=== PATIENT | female | born 1955 | race American Indian/Alaskan Native ===

== ENCOUNTER 2020-05-21 10:30 | Outpatient (RCR) | payer MEDICARE, OTHER, SELFPAY ==
[2020-05-20 10:04] VITALS: BP 150/77; PULSE 70
--- NOTE | 2020-05-20 11:05 | MHC.PT.EP ---
[facility] [place] Office [place] Office [place] Office [address] Hector Herzog [address] [phone] F: [phone] F: [phone] F: [phone] F: [phone] Physical Therapy Plan of Care Date of Evaluation: 05/20/20 Date of Surgery: Diagnosis: Dizziness and Giddiness Assessment: 65 year old female referred for dizziness and giddiness . Pt reports of having sudden onset of dizziness about 2 months back. Pt woke up one morning with it. She has never has these symptoms in the past. Pt went to the ED as her symptoms lasted an hour. After keeping the pt in observation for 8 hours she was sent home with henrik. Due to persistent dizziness she was sent to PT. Examination reveals no pain, reports of room spinning dizziness with rolling in bed, supine <> sit and looking up, saccades, smooth pursuit, visual tracking and DVA- WNL, VBI negative, G SOP- WNL, DGI- and reports of room spinning dizziness in L abraham pike. R abraham pike and B roll test not tested due to increased nausea after CRM for L abraham pike. Pt lives with her son. She is independent with all ADLs but does them slowly and carefully. 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 She would benefit from PT with vestibular rehab Frequency and Duration: The patient will be seen 2/week for 4 weeks Short Term Goals: 1. Patient to be educated on symptoms and indications to return to therapy when needed in 4 weeks. 2. Pt will be negative for nystagmus or reports of vertigo in all diagnostic positions bilaterally to resolution of BPPV in 4 weeks. Detention Goals: Patient to be able to functionally move in all planes and directions without provocation of dizziness to show return to PLOF in 6 weeks. Treatment Plan: Modalities to reduce pain, spasms and effusion. Manual therapy to restore motion and function. Therapeutic exercise to improve strength and flexibility. Neuromuscular re-education for posture and balance. Therapeutic activities to return to functional activities of daily living. Please sign and return to therapist. Thank you for your referral.
--- NOTE | 2020-06-24 10:33 | MHC.PT.DC ---
[facility] [place] Office [place] Office [place] [employer] Office [address] Hector Herzog [address] [phone] F: [phone] F: [phone] F: [phone] F: [phone] Physical Therapy Discharge Report Diagnosis: Dizziness and Giddiness Date of Surgery: Date of Evaluation: 05/20/20 Date of Discharge: 06/24/20 Treatments to Date: 2 Cancellations to Date: 0 No Shows to Date: 0 Discharge Status: Achieved Goals Improved Function Discharge Summary: Pt presented with no symptoms of vertigo during her last treatment visit. She was re-assessed in L abraham pike and assessed in R abraham pike and B roll test. She was negative for nystagmus and vertigo. She has been asymptomatic for a month. Pt therefore d/c from therapy. Electronically signed by: Lyssa Ordaz DPT Please sign and return to therapist. Thank you for your referral.
== END 2020-06-24 10:37 | disposition other institution (70) ==
LOC: HO.PT 10:30
PROVIDERS: PCP Internal Medicine; Visit Provider Internal Medicine
DX: R42 Dizziness and giddiness (principal); F41.9 Anxiety disorder, unspecified
CPT/HCPCS: 95992; 97110; 97112; 97161

== ENCOUNTER 2020-07-01 10:04 | Outpatient (REF) | payer MEDICARE, OTHER, SELFPAY ==
--- NOTE | 2020-07-01 10:38 | XR_ITS ---
EXAMINATION: XR SHOULDER, LEFT CLINICAL INFORMATION: Shoulder pain. COMPARISON: None TECHNIQUE: AP external rotation, Grashey, scapular Y, and axillary views of the left shoulder. FINDINGS: Mild AC joint arthritis. No acute fracture or dislocation is seen. Glenohumeral joint space is maintained. No abnormal soft tissue calcification. XR/XR shoulder LT min 2V IMPRESSION: Mild AC joint arthritis.
[2020-07-01 11:28] LABS: MANUAL DIFF FLAG NO
[2020-07-01 11:39] LABS: Basophils Absolute Auto 0.1 X10*3/uL (0.0-0.2); Basophils Percent Auto 0.8 % (0-2); Eosinophils Absolute Auto 0.1 X10*3/uL (0.0-0.4); Eosinophils Percent Auto 1.6 % (0-4); Hematocrit 39.6 % (37-47); Imm Gran Abs Auto 0.04 X10*3/uL (0.00-0.03); Imm Gran Pct Auto 0.6 % (0.0-0.4); Lymphocytes Absolute Auto 1.9 X10*3/uL (1.2-4.9); Lymphocytes Percent Auto 26.3 % (20-40); Mean Corpuscular HGB Conc 30.3 g/dl (31.0-35.0); Mean Corpuscular Hemoglobin 22.3 pg (27.0-33.0); Mean Corpuscular Volume 73.6 fL (80-98); Mean Platelet Volume 12.1 fL (9.4-12.3); Monocytes Absolute Auto 0.7 X10*3/uL (0.1-1.2); Monocytes Percent Auto 9.9 % (2-11); Neutrophils Absolute Auto 4.3 X10*3/uL (2.0-8.3); Neutrophils Percent Auto 60.8 % (45-73); Platelet Count 235 X10*3/uL (160-400); Red Blood Count 5.38 X10*6/uL (4.20-5.50); Red Cell Distribution Width 14.3 % (11.0-16.0); White Blood Count 7.1 X10*3/uL (4.8-10.8)
[2020-07-01 11:55] LABS: Glucose Urine UA NEG (NEG); Leukocyte Esterase Urine NEG (NEG); Nitrite Urine NEG (NEG); PH 6.5 (5.0-8.0); Specific Gravity - Urine 1.025 (1.005-1.025); Urine Blood TRACE (NEG); Urine Ketones NEG (NEG); Urine Protein NEG (NEG-TRACE)
[2020-07-01 11:57] LABS: Appearance Urine CLEAR; Color Urine YELLOW
[2020-07-01 12:06] LABS: Mucus Urine 1+ /LPF; WBC Urine 0-2 /HPF (0-4)
[2020-07-01 12:13] LABS: Anion Gap 14 (12-20); Blood Urea Nitrogen 16 mg/dL (9-16); Calcium 8.9 mg/dL (8.4-10.2); Carbon Dioxide 26 mmol/L (22-29); Chloride 105 mmol/L (96-108); Cholesterol 251 mg/dL; Estimated Glomerular Filt Rate > 60; Glucose Fasting 110 mg/dL (60-99); HDL Cholesterol 54 mg/dL; LDL Cholesterol Calculated 173 mg/dl; Potassium 4.2 mmol/l (3.3-5.1); Sodium 141 mmol/L (135-145); Triglycerides 121 mg/dL
[2020-07-01 12:37] LABS: TSH reflex Free T4 1.89 mIU/mL (0.32-4.0)
[2020-07-01 14:22] LABS: Alanine Aminotransferase 14 U/L (0-31); Albumin Level 4.4 g/dL (3.5-5.0); Alkaline Phosphatase 75 U/L (39-117); Aspartate Amino Transferase 20 U/L (5-31); Bilirubin Total 0.4 mg/dL (0.0-1.0); Total Protein 7.3 g/dL (6.5-8.0)
== END 2020-07-01 10:05 | disposition home or self-care (01) ==
LOC: HO.LAB 10:04
PROVIDERS: Nurse Practitioner Family; Visit Provider Internal Medicine
DX: M25.512 Pain in left shoulder (principal)
CPT/HCPCS: 36415; 73030; 80048; 80053; 80061; 81001; 84443; 85025

== ENCOUNTER 2021-07-04 09:11 | Outpatient (REF) | payer MEDICARE, OTHER, SELFPAY ==
[2021-07-04 11:06] LABS: MANUAL DIFF FLAG NO
[2021-07-04 11:23] LABS: Basophils Absolute Auto 0.1 X10*3/uL (0.0-0.2); Basophils Percent Auto 0.7 % (0-2); Eosinophils Absolute Auto 0.1 X10*3/uL (0.0-0.4); Eosinophils Percent Auto 1.5 % (0-4); Hematocrit 40.3 % (37.0-47.0); Hemoglobin 12.1 g/dl (12.0-16.0); Imm Gran Abs Auto 0.04 X10*3/uL (0.00-0.03); Imm Gran Pct Auto 0.6 % (0.0-0.4); Lymphocytes Absolute Auto 2.2 X10*3/uL (1.2-4.9); Lymphocytes Percent Auto 30.5 % (20-40); Mean Corpuscular Hemoglobin 21.8 pg (27.0-33.0); Mean Corpuscular Volume 72.7 fL (80.0-98.0); Mean Platelet Volume 11.9 fL (9.4-12.3); Monocytes Absolute Auto 0.5 X10*3/uL (0.1-1.2); Monocytes Percent Auto 6.9 % (2-11); Neutrophils Absolute Auto 4.3 x10*3/uL (2.0-8.3); Neutrophils Percent Auto 59.8 % (45-73); Platelet Count 207 X10*3/uL (160-400); Red Blood Count 5.54 X10*6/uL (4.20-5.50); Red Cell Distribution Width 15.1 % (11.0-16.0); White Blood Count 7.1 X10*3/uL (4.8-10.8)
[2021-07-04 11:40] LABS: Alanine Aminotransferase 38 U/L (0-31); Albumin Level 4.4 g/dL (3.5-5.0); Alkaline Phosphatase 84 U/L (39-117); Anion Gap 12 (12-20); Aspartate Amino Transferase 28 U/L (5-31); Bilirubin Total 0.4 mg/dL (0.0-1.0); Blood Urea Nitrogen 16 mg/dL (9-16); Calcium 9.4 mg/dL (8.4-10.2); Carbon Dioxide 28 mmol/L (22-29); Chloride 104 mmol/L (96-108); Cholesterol 284 mg/dL; Estimated Glomerular Filt Rate > 60; Glucose Fasting 124 mg/dL (60-99); HDL Cholesterol 61 mg/dL; LDL Cholesterol Calculated 203 mg/dl; Potassium 4.1 mmol/L (3.3-5.1); Sodium 140 mmol/L (135-145); Total Protein 7.6 g/dL (6.5-8.0); Triglycerides 104 mg/dL
[2021-07-04 11:48] LABS: Thyroid Stimulating Hormone 25.54 uIU/mL (0.32-4.0); Vitamin D 25-OH Total 19.7 ng/mL (>30)
== END 2021-07-04 09:12 | disposition home or self-care (01) ==
LOC: HO.HMGCLDS 09:11
PROVIDERS: Visit Provider Internal Medicine
DX: E55.9 Vitamin D deficiency, unspecified (principal); E03.9 Hypothyroidism, unspecified; E78.00 Pure hypercholesterolemia, unspecified; I10 Essential (primary) hypertension
CPT/HCPCS: 36415; 80053; 80061; 82306; 84439; 84443; 85025

== ENCOUNTER 2022-08-11 09:22 | Outpatient (REF) | payer MEDICARE, OTHER, SELFPAY ==
[2022-08-11 11:16] LABS: Appearance Urine Clear; Color Urine Yellow; Glucose Urine UA Negative (Negative); Leukocyte Esterase Urine Negative (Negative); Nitrite Urine Negative (Negative); UMIC TRIGGER UACC YES; Urine Blood Trace (Negative); Urine Ketones Negative (Negative); Urine Protein Negative (Neg-Trace)
[2022-08-11 11:21] LABS: Bacteria Urine None Seen (None Seen); Hyaline Casts Urine 0-2 /LPF (0-2); RBC Urine 0-2 /HPF (0-2); Squamous Epithelial Cell Urine 0-2 /HPF (0-2); WBC Urine 0-5 /HPF (0-5)
[2022-08-11 11:23] LABS: MANUAL DIFF FLAG NO
[2022-08-11 11:29] LABS: Basophils Absolute Auto 0.1 X10*3/uL (0.0-0.2); Basophils Percent Auto 0.9 % (0-2); Eosinophils Absolute Auto 0.2 X10*3/uL (0.0-0.4); Eosinophils Percent Auto 2.9 % (0-4); Hematocrit 38.1 % (37.0-47.0); Hemoglobin 11.5 g/dl (12.0-16.0); Imm Gran Abs Auto 0.03 X10*3/uL (0.00-0.03); Imm Gran Pct Auto 0.4 % (0.0-0.4); Lymphocytes Absolute Auto 2.1 X10*3/uL (1.2-4.9); Mean Corpuscular HGB Conc 30.2 g/dl (31.0-35.0); Mean Corpuscular Hemoglobin 21.8 pg (27.0-33.0); Mean Corpuscular Volume 72.3 fL (80.0-98.0); Mean Platelet Volume 12.6 fL (9.4-12.3); Monocytes Absolute Auto 0.6 X10*3/uL (0.1-1.2); Monocytes Percent Auto 8.6 % (2-11); Neutrophils Absolute Auto 3.9 x10*3/uL (2.0-8.3); Neutrophils Percent Auto 57.2 % (45-73); Platelet Count 232 X10*3/uL (160-400); Red Blood Count 5.27 X10*6/uL (4.20-5.50); Red Cell Distribution Width 14.7 % (11.0-16.0); White Blood Count 6.8 X10*3/uL (4.8-10.8)
[2022-08-11 12:03] LABS: Alanine Aminotransferase 43 U/L (0-31); Albumin Level 4.2 g/dL (3.5-5.0); Alkaline Phosphatase 105 U/L (39-117); Anion Gap 12 (12-20); Aspartate Amino Transferase 43 U/L (5-31); Bilirubin Total 0.6 mg/dL (0.0-1.0); Blood Urea Nitrogen 12 mg/dL (9-16); Calcium 9.2 mg/dL (8.4-10.2); Carbon Dioxide 26 mmol/L (22-29); Chloride 108 mmol/L (96-108); Cholesterol 268 mg/dL; Estimated Glomerular Filt Rate > 60; Glucose Fasting 145 mg/dL (60-99); HDL Cholesterol 59 mg/dL; LDL Cholesterol Calculated 191 mg/dl; Potassium 3.9 mmol/L (3.3-5.1); Sodium 142 mmol/L (135-145); Triglycerides 90 mg/dL
[2022-08-11 12:23] LABS: Free T4 (Free Thyroxine) 0.99 ng/dL (0.71-1.85); Thyroid Stimulating Hormone 9.91 uIU/mL (0.32-4.0); Vitamin D 25-OH Total 14.1 ng/mL (>30)
== END 2022-08-11 09:23 | disposition home or self-care (01) ==
LOC: HO.HMGCLDS 09:22
PROVIDERS: PCP Internal Medicine; Visit Provider Internal Medicine
DX: E03.9 Hypothyroidism, unspecified (principal); I10 Essential (primary) hypertension; E55.9 Vitamin D deficiency, unspecified; E78.00 Pure hypercholesterolemia, unspecified
CPT/HCPCS: 36415; 80053; 80061; 81001; 82306; 84439; 84443; 85025

== ENCOUNTER 2023-04-18 07:43 | Outpatient (REF) | payer MEDICARE, OTHER, SELFPAY ==
[2023-04-18 11:28] LABS: Appearance Urine Cloudy; Color Urine Yellow; Glucose Urine UA Negative (Negative); Leukocyte Esterase Urine Negative (Negative); Nitrite Urine Negative (Negative); Urine Blood Negative (Negative); Urine Ketones Negative (Negative); Urine Protein Negative (Neg-Trace)
[2023-04-18 11:33] LABS: MANUAL DIFF FLAG NO
[2023-04-18 11:53] LABS: Basophils Absolute Auto 0.1 X10*3/uL (0.0-0.2); Basophils Percent Auto 0.8 % (0-2); Eosinophils Absolute Auto 0.2 X10*3/uL (0.0-0.4); Eosinophils Percent Auto 2.6 % (0-4); Hematocrit 38.6 % (37.0-47.0); Hemoglobin 11.5 g/dl (12.0-16.0); Imm Gran Abs Auto 0.02 X10*3/uL (0.00-0.03); Imm Gran Pct Auto 0.3 % (0.0-0.4); Lymphocytes Absolute Auto 1.9 X10*3/uL (1.2-4.9); Lymphocytes Percent Auto 31.4 % (20-40); Mean Corpuscular HGB Conc 29.8 g/dl (31.0-35.0); Mean Corpuscular Hemoglobin 21.6 pg (27.0-33.0); Mean Corpuscular Volume 72.6 fL (80.0-98.0); Mean Platelet Volume 11.4 fL (9.4-12.3); Monocytes Absolute Auto 0.5 X10*3/uL (0.1-1.2); Neutrophils Absolute Auto 3.5 x10*3/uL (2.0-8.3); Neutrophils Percent Auto 56.9 % (45-73); Platelet Count 266 X10*3/uL (160-400); Red Blood Count 5.32 X10*6/uL (4.20-5.50); Red Cell Distribution Width 15.5 % (11.0-16.0); White Blood Count 6.1 X10*3/uL (4.8-10.8)
[2023-04-18 12:43] LABS: Alanine Aminotransferase 15 U/L (0-31); Albumin Level 4.3 g/dL (3.5-5.0); Alkaline Phosphatase 64 U/L (39-117); Anion Gap 13 (12-20); Aspartate Amino Transferase 23 U/L (5-31); Bilirubin Total 0.5 mg/dL (0.0-1.0); Blood Urea Nitrogen 14 mg/dL (9-16); Calcium 9.4 mg/dL (8.4-10.2); Carbon Dioxide 26 mmol/L (22-29); Chloride 106 mmol/L (96-108); Cholesterol 221 mg/dL (<200); Estimated Glomerular Filt Rate > 60; Glucose Fasting 135 mg/dL (60-99); HDL Cholesterol 51 mg/dL (>40); Iron 82 mcg/dL (30-160); LDL Cholesterol Calculated 153 mg/dL (<100); Percent Iron Saturation 38 % (15-50); Potassium 3.7 mmol/L (3.3-5.1); Sodium 141 mmol/L (135-145); Total Iron Binding Capacity 213 mcg/dL (228-428); Total Protein 7.5 g/dL (6.5-8.0); Triglycerides 85 mg/dL (<150); Unsaturated Iron Binding 131 ug/dL; Vitamin D 25-OH Total 23.2 ng/mL (>30)
== END 2023-04-18 07:44 | disposition home or self-care (01) ==
LOC: HO.HMGCLDS 07:43
PROVIDERS: PCP Internal Medicine; Visit Provider Internal Medicine
DX: E78.00 Pure hypercholesterolemia, unspecified (principal); E55.9 Vitamin D deficiency, unspecified; E03.9 Hypothyroidism, unspecified; R30.0 Dysuria; D50.9 Iron deficiency anemia, unspecified; I10 Essential (primary) hypertension
CPT/HCPCS: 36415; 80053; 80061; 81003; 82306; 83540; 84439; 84443; 85025

== ENCOUNTER 2023-04-18 08:19 | Outpatient (AMB) | payer MEDICARE, OTHER, SELFPAY ==
--- NOTE | 2023-04-18 08:34 | A.OFFPC_ITS ---
Vital Signs 04/18/23 08:36 Height 5 ft 1 in Weight 111 lb 8 oz BMI 21.1 BP 118/82 Blood Pressure Location Lt brachial Position Sitting Pulse 65 Pulse Source Pulse Oximeter Pulse Oximetry (%) 98 Oxygen Delivery Method Room Air Intake Visit Reasons: hyperlipidemia, hypothyroidism, anemia Civil Service Clerk Required: No Accompanied by: Self / Same As Patient Allergies atorvastatin Adverse Reaction (Intermediate, Verified 04/18/23 09:32) weakness - feels shaky Rosuvastatin Adverse Reaction (Intermediate, Uncoded 04/18/23 09:32) leg weakness Medication List - Last Reconciled 04/18/23 by Jamison Gibson MD ascorbate calcium (vitamin C) 500 mg PO DAILY cholecalciferol (vitamin D3) 50 mcg PO DAILY 90 days ferrous sulfate 325 mg PO DAILY 30 days levothyroxine 112 mcg PO DAILY 90 days pravastatin 10 mg PO BEDTIME 30 days Tobacco use date assessed: 04/18/23 Fall risk assessment: No Falls in past year Last assessed Fall Risk: 04/18/23 Dental Screening Dental Screen Date: 04/18/23 Did you have a dental visit in the last 12 months?: No Did you have a dental problem in the last 6 months where you did not have access to dental care?: No Was dental information given to patient?: No HPI hyperlipidemia, hypothyroidism, anemia HPI Details Patient comes in today for her follow up visit States that she currently feels okay Is tolerating her Pravastatin 10 mg so far; was not able to tolerate Atorvastatin and Rosuvastatin in the past due to increasing myalgias while on the medications Thinks that her Levothyroxine 112 mcg daily may be too high for her as she has been experiencing some recurrent cramping pain in her fingers lately States that she just had her labs drawn earlier today at the lab draw station on [address] [place] - results are not yet available for review at this time She denies any headaches or dizziness Denies any chest pains, no SOB No nausea/vomiting, no abdominal pain No change in bowel habits noted Adds that her left shoulder has been bothering her (pain) on and off often lately States that she went to a local [facility] on [address] [place] a few weeks ago and had shoulder x-rays done - was told that her x-rays came out normal [facility] Medical History Vitamin D deficiency Acquired hypothyroidism Pure hypercholesterolemia Depression Iron deficiency anemia secondary to inadequate dietary iron intake Hyperlipidemia Anxiety Surgical History No pertinent past surgical history Family History Father No problems noted. Mother No problems noted. Social History Housing: House Alcohol intake: never Patient Tobacco Use Status: Never used Tobacco e-Cigarette/Vaping Use: Never Used Second Hand Smoke Exposure: No service: No Current occupational status: retired Cognitive needs: No Hearing needs: No Vision needs: Yes Questionnaire PHQ-9 Over the last 2 weeks, how often have you been bothered by any of the following problems? 1. Little interest or pleasure in doing things: not at all 2. Feeling down, depressed, or hopeless: not at all 3. Trouble falling or staying asleep, or sleeping too much: not at all 4. Feeling tired or having little energy: not at all 5. Poor appetite or overeating: not at all 6. Feeling bad about yourself - or that you are a failure or have let yourself or your family down: not at all 7. Trouble concentrating on things, such as reading the newspaper or watching television: not at all 8. Moving or speaking so slowly that other people could have noticed. Or the opposite - being so fidgety or restless that you have been moving around a lot more than usual: not at all 9. Thoughts that you would be better off or of hurting yourself in some way: not at all Total score: 0 Depression Screening Interpretation: Negative 55098 - PHQ-9 Billing: Yes Source: Developed by Drs. Pardeep Tidwell, Deb Pace, Victoriano Santoyo and colleagues, with an educational marleen from [employer]. Thrive Questionnaire Date Thrive assessed: 04/18/23 I am a: Patient What is your living situation today?: I have a steady place to live Within the past 12 months, did the food you bought not last and you didn't have the money to get more?: Never true Within the past 12 months, did you worry whether your food would run out before you got money to buy more?: Never true Do you have trouble paying for medicines?: No Do you have trouble getting transportation to medical appointments?: No Do you have trouble paying your heating and electricity bill?: No Do you have trouble taking care of your child, family member or friend?: No Do you have trouble with day-to-day activities such as bathing, preparing meals, shopping, managing finances, etc.?: No Are you currently unemployed and looking for a job?: No Are you interested in more education?: No Please select the resources that you would like help with: None Currently or been in a relationship where the following occur: no concerns reported AUDIT C Alcohol Use Questionnaire (AUDIT-C) 1. How often do you have a drink containing alcohol?: Never 3. How often do you have six or more drinks on one occasion?: Never Total Score: 0 Score Reviewed/Action Taken: Yes VANESA-7 AMB Questionnaire VANESA-7 Date VANESA - 7 assessed: 04/18/23 Feeling nervous, anxious, or on edge: 0 = Not at all Not being able to stop or control worryin = Not at all Worrying too much about different things: 0 = Not at all Trouble relaxin = Not at all Being so restless that it is hard to sit still: 0 = Not at all Becoming easily annoyed or irritable: 0 = Not at all Feeling afraid as if something awful might happen: 0 = Not at all Total VANESA-7 score (0-4 normal; 5-9 mild; 10-14 moderate; 15-21 severe): 0 Source: Developed by Drs. Pardeep Tidwell, Deb Pace, Victoriano Santoyo and colleagues, with an educational marleen from [employer]. Review of Systems Const Denies chills, Denies fatigue, Denies fever(s) and Denies headache(s) ENT Denies dysphagia, Denies dizziness, Denies otalgia, Denies headache(s), Denies neck pain, Denies odynophagia and Denies sore throat Card Denies chest pain, Denies palpitations and Denies dyspnea Resp Denies cough and Denies dyspnea GI Denies abdominal pain, Denies constipation, Denies dysphagia, Denies heartburn, Denies diarrhea, Denies nausea, Denies odynophagia and Denies vomiting Denies difficulty voiding, Denies nocturia and Denies dysuria Musc Reports arthralgias (left shoulder,on and off; recurrent cramping pain in fingers on both hands ) and Denies neck pain Skin/Breast Denies rash Neuro Denies dizziness and Denies headache(s) Endo Denies fatigue and Denies palpitations Physical exam (Primary Care) Vital Signs: Last Vital Signs Pulse 65 04/18/23 08:36 BP 118/82 04/18/23 08:36 Pulse Ox 98 04/18/23 08:36 Oxygen Delivery Method Room Air 04/18/23 08:36 BMI result Body Mass Index 21.1 Tobacco/Smoking Status: Tobacco use Status Tobacco use date assessed 04/18/23 04/18/23 08:38 Patient Tobacco Use Status Never used Tobacco 04/18/23 08:35 e-Cigarette/Vaping Use Never Used 04/18/23 08:35 PHQ-9: PHQ-9 Score PHQ-9: Total score 0 04/18/23 08:44 Depression Screening Interpretation: Negative Thrive Assessment: Date of Thrive Assessment Date Thrive assessed 04/18/23 04/18/23 08:38 Currently or been in a relationship where the following occur: no concerns reported Const General: no acute distress and alert HENMT Ears: TM's normal bilaterally and EAC's normal Throat: Yes posterior oropharynx normal and Yes tonsils normal (no TP congestion) Neck Neck: Yes no lymphadenopathy and Yes supple Resp Auscultation: clear to auscultation bilaterally, no rales and no wheezes Cardio Rate: regular rate Rhythm: regular rhythm Heart sounds: no murmurs GI Palpation (GI): Soft to palpation and nontender Auscultation: normal bowel sounds Skin Rashes: no rashes Extrem General: Yes no clubbing, cyanosis or edema Right upper extremity: Extremity exam: right hand Details: normal to inspection Left upper extremity: shoulder/upper arm Details: tenderness and normal ROM and hand Details: normal to inspection Office Procedures Flu Questionnaire Does the patient have a severe egg allergy?: No Immunizations flu vacc [id number] 6mos up(PF) 60 mcg(15 mcgx4)/0.5 mL IM syringe Performing Provider: Jamison Gibson MD Performing Location: [facility] Documented (not given) by: Nino Dennis on 04/18/23 08:44 Reason Not Given: Patient Refused Assessment and Plan Assessment & Plan (1) Pure hypercholesterolemia: Code(s): E78.00 - Pure hypercholesterolemia, unspecified Plan: Will follow up the results of her labs done earlier today Reinforced low cholesterol diet Continue Pravastatin 10 mg QD (was not able to tolerate Atorvastatin or Rosuvastatin in the past) Will recheck her labs and fasting lipids again in 4 months for follow up (2) Acquired hypothyroidism: Code(s): E03.9 - Hypothyroidism, unspecified Plan: Will follow up the results of her TFTs done earlier today Continue Levothyroxine 112 mcg QD for now - patient feels that her dose is too high as she has been experiencing recurrent cramping pain in her fingers lately Advised that her symptoms do not necessarily mean that they are due to her thyroid as there are a lot of other reasons that can contribute to her symptoms Advised that we will check back with her with further instructions once we have the results of her labs andwill let her know if her dose needs to be adjusted or not Will recheck her TFTs again in 4 months for follow up (3) Iron deficiency anemia secondary to inadequate dietary iron intake: Code(s): D50.8 - Other iron deficiency anemias Plan: She was still slightly anemic on her labs back in July 2022; will follow up the results of her CBC from earlier this morning Continue Ferrous Sulfate 325 mg QD Will recheck her CBC as well in 4 months for follow up (4) Vitamin D deficiency: Code(s): E55.9 - Vitamin D deficiency, unspecified Plan: Continue Vitamin D3 2000 units QD (5) Anxiety: Code(s): F41.9 - Anxiety disorder, unspecified Plan: Was on Escitalopram 20 mg QD in the past but she self-discontinued the medication a few months ago as she was feeling okay and did not think that she needed to continue on her Rx Was also seeing psychiatry previously but has not been back to see them in a while now (6) Depression: Code(s): F32.9 - Major depressive disorder, single episode, unspecified Qualifiers: Depression Type: major depressive disorder Major depression recurrence: recurrent Active/Remission status: currently active Major depression episode severity: unspecified Qualified Code(s): F33.9 - Major depressive disorder, recurrent, unspecified Plan: As above, was on Escitalopram 20 mg QD in the past but she self-discontinued the medication a few months ago as she did not feel that she needed to continue on her Rx Was seeing psychiatry previously but has not been back to see them in a while now (7) Shoulder pain, left: Code(s): M25.512 - Pain in left shoulder Qualifiers: Chronicity: chronic Qualified Code(s): M25.512 - Pain in left shoulder; G89.29 - Other chronic pain Plan: She is again experiencing recurrent left shoulder pain lately Relates that she went to a local [facility] a few weeks ago and had shoulder x- rays done, which reportedly came out normal Advised that her symptoms are most likely due to bursitis/tendinitis, especially since she is left-handed, and that this is most from overuse of her arm/joint Can take OTC Ibuprofen PRN but if her symptoms persist, may benefit from physical therapy Plan Follow up in 4 months Orders: Orders Complete Blood Count Auto Diff 4 Months D50.8 - Other iron deficiency anemias Thyroid Stimulating Hormone 4 Months E03.9 - Hypothyroidism, unspecified Influenza [id number] Immunization Today Z23 - Encounter for immunization Lipid Panel 4 Months E78.00 - Pure hypercholesterolemia, unspecified Comprehensive Supai. Panel Fast 4 Months E78.00 - Pure hypercholesterolemia, unspecified Free T4 (Free Thyroxine) 4 Months E03.9 - Hypothyroidism, unspecified Vitamin D 25-OH Total 4 Months E55.9 - Vitamin D deficiency, unspecified Coding Level of Care Code Est Pt Level 4 (09845) Diagnoses Pure hypercholesterolemia E78.00 Acquired hypothyroidism E03.9 Iron deficiency anemia secondary to inadequate dietary iron intake D50.8 Vitamin D deficiency E55.9 Anxiety F41.9 Episode of recurrent major depressive disorder, unspecified depression episode severity F33.9 Depression Type: major depressive disorder Major depression recurrence: recurrent Active/Remission status: currently active Major depression episode severity: unspecified Chronic left shoulder pain M25.512; G89.29 Chronicity: chronic
[2023-04-18 08:36] VITALS: BP 118/82; PULSE 65; O2SAT 98; BMI 21.1
== END 2023-04-18 09:32 | disposition home or self-care (01) ==
PROVIDERS: PCP Internal Medicine; Visit Provider Internal Medicine
DX: E78.00 Pure hypercholesterolemia, unspecified (principal); E03.9 Hypothyroidism, unspecified; F33.9 Major depressive disorder, recurrent, unspecified; D50.8 Other iron deficiency anemias; E55.9 Vitamin D deficiency, unspecified; F41.9 Anxiety disorder, unspecified; M25.512 Pain in left shoulder; G89.29 Other chronic pain
CPT/HCPCS: 99214

== ENCOUNTER 2023-09-06 15:18 | Outpatient (REF) | payer MEDICARE, OTHER, SELFPAY ==
[2023-09-06 16:21] LABS: Appearance Urine Clear; Color Urine Yellow; Glucose Urine UA Negative (Negative); Leukocyte Esterase Urine Trace (Negative); Nitrite Urine Negative (Negative); Specific Gravity - Urine 1.015 (1.005-1.025); UMIC TRIGGER UACC YES; Urine Blood Negative (Negative); Urine Ketones Negative (Negative); Urine Protein Negative (Neg-Trace)
[2023-09-06 16:25] LABS: Bacteria Urine None Seen (None Seen); Hyaline Casts Urine 0-2 /LPF (0-2); RBC Urine 0-2 /HPF (0-2); Squamous Epithelial Cell Urine 0-2 /HPF (0-2); WBC Urine 0-5 /HPF (0-5)
== END 2023-09-06 15:19 | disposition home or self-care (01) ==
LOC: HO.HMGCLDS 15:18
PROVIDERS: PCP Internal Medicine; Visit Provider Internal Medicine
DX: R39.9 Unspecified symptoms and signs involving the genitourinary system (principal)
CPT/HCPCS: 81001

== ENCOUNTER 2023-12-30 13:31 | Outpatient (AMB) | payer MEDICARE, OTHER, SELFPAY ==
[2023-12-30 13:54] VITALS: BP 124/68; PULSE 64; O2SAT 98; BMI 21.5
--- NOTE | 2023-12-30 13:54 | MHC.PC.OV ---
Vital Signs 12/30/23 13:54 Height 5 ft 1 in Weight 114 lb BMI 21.5 BP 124/68 Blood Pressure Location Lt brachial Position Sitting Pulse 64 Pulse Source Pulse Oximeter Pulse Oximetry (%) 98 Oxygen Delivery Method Room Air Intake Visit Reasons: nauseated, has a bump on top of belly button Allergies atorvastatin Adverse Reaction (Intermediate, Verified 12/30/23 14:06) weakness - feels shaky Rosuvastatin Adverse Reaction (Intermediate, Uncoded 12/30/23 14:06) leg weakness Medication List - Last Reconciled 12/30/23 by Jamison Gibson MD ascorbate calcium (vitamin C) 500 mg PO DAILY cholecalciferol (vitamin D3) 50 mcg PO DAILY 90 days ferrous sulfate 325 mg PO DAILY 30 days levothyroxine 112 mcg PO DAILY 90 days pravastatin 10 mg PO BEDTIME 30 days Tobacco use date assessed: 04/18/23 Dental Screening Dental Screen Date: 04/18/23 HPI nauseated, has a bump on top of belly button HPI Details Patient comes in today for her HDF follow up visit She went to the ER at [facility] a couple of weeks ago for increased dizziness, with some nausea, for about 3 days Work ups done at the hospital, including labs, head CT and CTA of the head and neck, all came out normal States that she was sent home with Rx for Meclizine, which she states helped but she is not taking that anymore at present as her dizziness has resolved She is worried though about her symptoms recurring and would like to know what she can do to prevent her symptoms from coming back States that she currently feels okay She denies any headaches Denies any chest pains, no SOB No nausea/vomiting, no abdominal pain No change in bowel habits noted She had follow up labs last done back in April 2023 - has not had any other follow up labs done since [facility] Medical History Vitamin D deficiency Acquired hypothyroidism Pure hypercholesterolemia Depression Iron deficiency anemia secondary to inadequate dietary iron intake Hyperlipidemia Anxiety Surgical History No pertinent past surgical history Family History Father No problems noted. Mother No problems noted. Social History Housing: House Alcohol intake: never Patient Tobacco Use Status: Never used Tobacco e-Cigarette/Vaping Use: Never Used Second Hand Smoke Exposure: No service: No Current occupational status: retired Cognitive needs: No Hearing needs: No Vision needs: Yes Questionnaire PHQ-9 Over the last 2 weeks, how often have you been bothered by any of the following problems? 1. Little interest or pleasure in doing things: not at all 2. Feeling down, depressed, or hopeless: not at all 3. Trouble falling or staying asleep, or sleeping too much: not at all 4. Feeling tired or having little energy: not at all 5. Poor appetite or overeating: not at all 6. Feeling bad about yourself - or that you are a failure or have let yourself or your family down: not at all 7. Trouble concentrating on things, such as reading the newspaper or watching television: not at all 8. Moving or speaking so slowly that other people could have noticed. Or the opposite - being so fidgety or restless that you have been moving around a lot more than usual: not at all 9. Thoughts that you would be better off or of hurting yourself in some way: not at all Total score: 0 Depression Screening Interpretation: Negative Depression Screening Done: Yes [id number] - PHQ-9 Billing: Yes Source: Developed by Drs. Pardeep Tidwell, Deb Pace, Victoriano Santoyo and colleagues, with an educational marleen from [employer] Thrive Questionnaire Date Thrive assessed: 12/30/23 I am a: Patient What is your living situation today?: I have a steady place to live Within the past 12 months, did the food you bought not last and you didn't have the money to get more?: Never true Within the past 12 months, did you worry whether your food would run out before you got money to buy more?: Never true Do you have trouble paying for medicines?: No Do you have trouble getting transportation to medical appointments?: No Do you have trouble paying your heating and electricity bill?: No Do you have trouble taking care of your child, family member or friend?: No Do you have trouble with day-to-day activities such as bathing, preparing meals, shopping, managing finances, etc.?: No Are you currently unemployed and looking for a job?: No Are you interested in more education?: No Please select the resources that you would like help with: None Currently or been in a relationship where the following occur: no concerns reported THRIVE Score: 0 AUDIT C Alcohol Use Questionnaire (AUDIT-C) 1. How often do you have a drink containing alcohol?: Never 3. How often do you have six or more drinks on one occasion?: Never Total Score: 0 Score Reviewed/Action Taken: Yes VANESA-7 AMB Questionnaire VANESA-7 Date VANESA - 7 assessed: 04/18/23 Source: Developed by Drs. Pardeep Tidwell, Deb Pace, Victoriano Santoyo and colleagues, with an educational marleen from [employer] Review of Systems Const Denies chills, Denies fatigue, Denies fever(s) and Denies headache(s) ENT Denies dysphagia, Denies dizziness (currently resolved), Denies otalgia, Denies headache(s), Denies neck pain, Denies odynophagia and Denies sore throat Card Denies chest pain, Denies palpitations and Denies dyspnea Resp Denies cough and Denies dyspnea GI Denies abdominal pain, Denies constipation, Denies dysphagia, Denies heartburn, Denies diarrhea, Denies nausea, Denies odynophagia and Denies vomiting Denies difficulty voiding, Denies nocturia, Denies dysuria and Denies urinary urgency Musc Reports arthralgias (left shoulder,on and off; recurrent cramping pain in fingers on both hands ) and Denies neck pain Skin/Breast Denies rash Neuro Denies dizziness (currently resolved) and Denies headache(s) Endo Denies fatigue and Denies palpitations Physical exam (Primary Care) Vital Signs: Last Vital Signs Pulse 64 12/30/23 13:54 BP 124/68 12/30/23 13:54 Pulse Ox 98 12/30/23 13:54 Oxygen Delivery Method Room Air 12/30/23 13:54 BMI result Body Mass Index 21.5 Tobacco/Smoking Status: Tobacco use Status Tobacco use date assessed 04/18/23 12/30/23 13:57 Patient Tobacco Use Status Never used Tobacco 12/30/23 13:57 e-Cigarette/Vaping Use Never Used 12/30/23 13:57 Depression Screening Interpretation: Negative Thrive Assessment: Date of Thrive Assessment Date Thrive assessed 04/18/23 12/30/23 13:57 Currently or been in a relationship where the following occur: no concerns reported Const General: no acute distress and alert HENMT Ears: TM's normal bilaterally and EAC's normal Throat: Yes posterior oropharynx normal and Yes tonsils normal (no TP congestion) Neck Neck: Yes no lymphadenopathy and Yes supple Thyroid: Thyroid normal Resp Auscultation: clear to auscultation bilaterally, no rales and no wheezes Cardio Rate: regular rate Rhythm: regular rhythm Heart sounds: no murmurs GI Palpation (GI): Soft to palpation and nontender Auscultation: normal bowel sounds Skin Rashes: no rashes Extrem General: Yes no clubbing, cyanosis or edema Results Reviewed Results Reviewed: Laboratory Tests 04/18/23 07:50 WBC 6.1 Hgb 11.5 L Hct 38.6 MCV 72.6 L MCH 21.6 L MCHC 29.8 L RDW 15.5 Plt Count 266 Creatinine 0.76 Estimated GFR > 60 Fasting Glucose 135 H AST 23 ALT 15 Triglycerides 85 Cholesterol 221 H LDL Cholesterol, Calc 153 H HDL Cholesterol 51 TSH 22.10 H Free T4 0.90 Assessment and Plan Assessment & Plan (1) Dizziness: Code(s): R42 - Dizziness and giddiness Plan: She is advised that her recent symptoms (dizziness) are likely due to paroxysmal vertigo, which is a benign condition although they symptoms can be quite bothersome Advised that avoiding any sudden or abrupt changes in position, avoiding any head trauma and staying hydrated and getting plenty of sleep and rest at night can help minimize or avoid symptom recurrence but ultimately, there is nothing else that can be done directly that can help her keep these from recurring (2) Pure hypercholesterolemia: Code(s): E78.00 - Pure hypercholesterolemia, unspecified Plan: She is advised that her cholesterol numbers last done in April 2023 were still elevated Reinforced low cholesterol diet Continue Pravastatin 10 mg QD for now but we may need to consider increasing her dose if her numbers do not improve on her current Rx (she was not able to tolerate Atorvastatin or Rosuvastatin in the past) Will recheck her labs and fasting lipids again in 4 months for follow up (3) Acquired hypothyroidism: Code(s): E03.9 - Hypothyroidism, unspecified Plan: She is also advised that her TSH remain significantly elevated although her free T4 level has been gradually normalizing Continue Levothyroxine 112 mcg QD for now - patient feels that her dose is too high as she has been experiencing recurrent cramping pain in her fingers often She does have a habit of adjusting her medication dose on her own based on how she is physically feeling Advised again that her cramping symptoms do not necessarily mean that they are due to her thyroid as there are a lot of other reasons that can contribute to her symptoms Will recheck her TFTs again in 4 months for follow up (4) Iron deficiency anemia secondary to inadequate dietary iron intake: Code(s): D50.8 - Other iron deficiency anemias Plan: She was still slightly anemic on her labs back in April 2023, and continues to present with microcytosis and hypochromia Continue Ferrous Sulfate 325 mg QD Will recheck her CBC as well in 4 months for follow up (5) Vitamin D deficiency: Code(s): E55.9 - Vitamin D deficiency, unspecified Plan: Continue Vitamin D3 2000 units QD (6) Anxiety: Code(s): F41.9 - Anxiety disorder, unspecified Plan: She was on Escitalopram 20 mg QD in the past but she self-discontinued the medication a few months ago as she was feeling okay and did not think that she needed to continue on her Rx She was also seeing psychiatry previously but has not been back to see them in a while now (7) Depression: Code(s): F32.9 - Major depressive disorder, single episode, unspecified Qualifiers: Depression Type: major depressive disorder Major depression recurrence: recurrent Active/Remission status: currently active Major depression episode severity: unspecified Qualified Code(s): F33.9 - Major depressive disorder, recurrent, unspecified Plan: As above, was on Escitalopram 20 mg QD in the past but she self-discontinued the medication a few months ago as she did not feel that she needed to continue on her Rx Was seeing psychiatry previously but has not been back to see them in a while now Plan Follow up in 4 months Orders: Orders Lipid Panel 4 Months E78.00 - Pure hypercholesterolemia, unspecified Thyroid Stimulating Hormone 4 Months E03.9 - Hypothyroidism, unspecified Free T4 (Free Thyroxine) 4 Months E03.9 - Hypothyroidism, unspecified Microalbumin, Random (w Creat) 4 Months E11.9 - Type 2 diabetes mellitus without complications Hemoglobin A1c 4 Months E11.9 - Type 2 diabetes mellitus without complications IRON PROFILE 4 Months D50.9 - Iron deficiency anemia, unspecified UA CC w/rflx Micro + Cult 4 Months R30.0 - Dysuria Complete Blood Count Auto Diff 4 Months D64.9 - Anemia, unspecified Comprehensive Qulin. Panel Fast 4 Months E78.00 - Pure hypercholesterolemia, unspecified Vitamin D 25-OH Total 4 Months E55.9 - Vitamin D deficiency, unspecified Coding Level of Care Code Est Pt Level 4 (44410) Complex EM visit Add On G2211 Diagnoses Dizziness R42 Pure hypercholesterolemia E78.00 Acquired hypothyroidism E03.9 Iron deficiency anemia secondary to inadequate dietary iron intake D50.8 Vitamin D deficiency E55.9 Anxiety F41.9 Episode of recurrent major depressive disorder, unspecified depression episode severity F33.9 Depression Type: major depressive disorder Major depression recurrence: recurrent Active/Remission status: currently active Major depression episode severity: unspecified
== END 2023-12-30 14:20 | disposition home or self-care (01) ==
PROVIDERS: PCP Internal Medicine; Visit Provider Internal Medicine
DX: R42 Dizziness and giddiness (principal); F33.9 Major depressive disorder, recurrent, unspecified; E78.00 Pure hypercholesterolemia, unspecified; E03.9 Hypothyroidism, unspecified; D50.8 Other iron deficiency anemias; E55.9 Vitamin D deficiency, unspecified; F41.9 Anxiety disorder, unspecified
CPT/HCPCS: 99214; G2211

== ENCOUNTER 2024-07-16 11:13 | Outpatient (REF) | payer MEDICARE, OTHER, SELFPAY ==
[2024-07-16 13:32] LABS: Appearance Urine Cloudy; Color Urine Yellow; Glucose Urine UA Negative (Negative); Leukocyte Esterase Urine Negative (Negative); Nitrite Urine Negative (Negative); PH 6.5 (5.0-9.0); UMIC TRIGGER UACC YES; Urine Blood Small (1+) (Negative); Urine Ketones Negative (Negative); Urine Protein Negative (Neg-Trace)
[2024-07-16 13:35] LABS: Bacteria Urine None Seen (None Seen); Hyaline Casts Urine 0-2 /LPF (0-2); RBC Urine >20 /HPF (0-2); Squamous Epithelial Cell Urine 0-2 /HPF (0-2); WBC Urine 0-5 /HPF (0-5)
== END 2024-07-16 11:14 | disposition home or self-care (01) ==
LOC: HO.HMGCLDS 11:13
PROVIDERS: PCP Internal Medicine; Visit Provider Internal Medicine
DX: R35.0 Frequency of micturition (principal)
CPT/HCPCS: 81001

== ENCOUNTER 2024-08-09 15:41 | Outpatient (AMB) | payer MEDICARE, OTHER, SELFPAY ==
--- NOTE | 2024-08-09 15:48 | AM.OFFWIN_ITS ---
Intake Vital Signs 08/09/24 15:51 Weight 118 lb BP 120/70 Blood Pressure Location Lt brachial Position Sitting Pulse 91 Pulse Source Pulse Oximeter Temp 98.3 F Temp Source Oral Pulse Oximetry (%) 98 Oxygen Delivery Method Room Air Intake Visit Reasons: EP-stomach pain & uncontrollable bladder Intake Note: Patient here for stomach pain, burning when urinating that has been present for about 4 days. Patient Tobacco Use Status: Never used Tobacco Allergies atorvastatin Adverse Reaction (Intermediate, Verified 12/30/23 14:06) weakness - feels shaky Rosuvastatin Adverse Reaction (Intermediate, Uncoded 12/30/23 14:06) leg weakness HPI HPI Comments History of Present Illness Details 69 y/o female patient who presents to [facility] walk [facility] clinic with c/o abdominal cramping associated with Urinary frequency and dsyuria x 4 days. She does also endorse Vaginal itching and discomfort. Urinalysis positive for Glucose today and A1C 7.7% No known h/o T2DM but Pt does endorse eating unhealthy foods (Cookies and High Carb Diet over the holidays). Reports Stress eating over the holidays. [facility] Medical History (Updated 08/09/24 @ 16:49 by Martha Villareal NP) Type 2 diabetes mellitus Vitamin D deficiency Acquired hypothyroidism Pure hypercholesterolemia Depression Iron deficiency anemia secondary to inadequate dietary iron intake Hyperlipidemia Anxiety Surgical History No pertinent past surgical history Family History Father No problems noted. Mother No problems noted. Social History Housing: House Alcohol intake: never Patient Tobacco Use Status: Never used Tobacco e-Cigarette/Vaping Use: Never Used Second Hand Smoke Exposure: No service: No Current occupational status: retired Cognitive needs: No Hearing needs: No Vision needs: Yes Review of Systems Const All systems reviewed & are unremarkable except as noted in HPI and below Physical Exam Vital Signs: Last Vital Signs Temp 98.3 F 08/09/24 15:51 Pulse 91 08/09/24 15:51 BP 120/70 08/09/24 15:51 Pulse Ox 98 08/09/24 15:51 Oxygen Delivery Method Room Air 08/09/24 15:51 Const General: cooperative and no acute distress Orientation/consciousness: patient oriented x3 Other: Pelvic exam deferred today. General: Yes no CVA tenderness Back/Spine/Pelvis Back: no CVA tenderness Neuro General: patient oriented x3 and gait normal Psych Speech and movement: Normal speech and movement present Results AMB Urinalysis, Automated UA Leukoctes 0 Shawn/uL Last Edit by JENNIFER Hernandez on 08/09/24 16:20 UA Nitrite Negative Last Edit by Kathy Nesbitt [facility] on 08/09/24 16:20 UA Urobilinogen 0.2 mg/dL Last Edit by Kathy Nesbitt [facility] on 08/09/24 16:20 UA Protein 0 mg/dL Last Edit by Kathy Nesbitt [facility] on 08/09/24 16:20 UA pH 6.0 Last Edit by Kathy Nesbitt [facility] on 08/09/24 16:20 UA Blood 10 Bonifacio/uL Last Edit by Kathy Nesbitt [facility] on 08/09/24 16:22 UA Blood previously reported as 0 Kathy Nesbitt 08/09/24 16:22 UA Specific Halfway 1.020 Last Edit by Kathy Nesbitt [facility] on 08/09/24 16:20 UA Ketone Negative Last Edit by Kathy Nesbitt [facility] on 08/09/24 16:20 UA Bilirubin 0 mg/dL Last Edit by Kathy Nesbitt [facility] on 08/09/24 16:20 UA Glucose 500 mg/dL Last Edit by Kathy Nesbitt [facility] on 08/09/24 16:20 AMB Random Glucose (hemocue) AMB Random Glucose (hemocue) 185 mg/dL Last Edit by Kathy Nesbitt [facility] on 08/09/24 16:20 AMB Hemoglobin A1c AMB Hemoglobin A1c 7.7 % Last Edit by Kathy Nesbitt [facility] on 08/09/24 16 :26 Results Reviewed Results Reviewed: Laboratory Last Values Random Glu (Clinic) 185 mg/dL 08/09/24 16:18 Hgb A1c (Clinic) 7.7 % (4.0-6.0) H 08/09/24 16:18 Urine pH (Auto) 6.0 08/09/24 16:18 Specific Halfway (Auto) 1.020 08/09/24 16:18 Urine Protein (Auto) 0 mg/dL 08/09/24 16:18 Glucose (UA)(Auto) 500 mg/dL 08/09/24 16:18 Urine Ketones (Auto) Negative 08/09/24 16:18 Urine Blood (Auto) 10 Bonifacio/uL 08/09/24 16:18 Urine Nitrite (Auto) Negative 08/09/24 16:18 Urine Bilirubin (Auto) 0 mg/dL 08/09/24 16:18 Urine Urobilinogen (Auto) 0.2 mg/dL 08/09/24 16:18 Leukocyte Esterase (Auto) 0 Shawn/uL 08/09/24 16:18 Assessment & Plan Assessment & Plan (1) Type 2 diabetes mellitus: Code(s): E11.9 - Type 2 diabetes mellitus without complications Qualifiers: Diabetes mellitus ferry terminal agent insulin use: without detention use Diabetes mellitus complication status: without complication Qualified Code(s): E11.9 - Type 2 diabetes mellitus without complications Plan: New diagnosis of T2DM per A1C today. Discussed Medication options vs Lifestyle changes in detail today. Pt would like to try Lifestyle and diet changes for 3 months and repeat A1C plus Blood work then. Pt to f/u with PCP for proper Diabetes management. (2) Urinary tract infection symptoms: Code(s): R39.9 - Unspecified symptoms and signs involving the genitourinary system Plan: U/A negative for Leuc & Nit Symptoms related to High Glucose in Urine. Probably vaginal Yeast infection. Advised OTC Monistat to help with itching. Hydrate well with plenty of water to flush Kidneys. Orders: Orders AMB Hemoglobin A1c Today Z13.9 - Encounter for screening, unspecified AMB Urinalysis Automated Today Z13.9 - Encounter for screening, unspecified AMB Random Glucose (hemocue) Today Z13.9 - Encounter for screening, unspecified Coding Level of Care Code Est Pt Level 4 (95856) Diagnoses Type 2 diabetes mellitus without complication, without long-term current use of insulin E11.9 Diabetes mellitus ferry terminal agent insulin use: without ferry terminal agent use Diabetes mellitus complication status: without complication Urinary tract infection symptoms R39.9 Time Spent (min) 20
[2024-08-09 15:51] VITALS: BP 120/70; PULSE 91; TEMP 36.8; O2SAT 98
== END 2024-08-09 16:43 | disposition home or self-care (01) ==
PROVIDERS: PCP Internal Medicine; Visit Provider Nurse Practitioner Family
DX: E11.9 Type 2 diabetes mellitus without complications (principal); R39.9 Unspecified symptoms and signs involving the genitourinary system; Z13.9 Encounter for screening, unspecified

== ENCOUNTER → 2024-08-09 15:41 | Outpatient (BNVA) | payer MEDICARE, OTHER, SELFPAY | PROVIDERS: PCP Internal Medicine; Visit Provider Nurse Practitioner Family | DX: E11.9 Type 2 diabetes mellitus without complications (principal); R39.9 Unspecified symptoms and signs involving the genitourinary system | CPT/HCPCS: 81003; 82948; 83036; 99212 ==

== ENCOUNTER 2024-08-28 11:01 | Outpatient (AMB) | payer MEDICARE, OTHER, SELFPAY ==
[2024-08-28 11:10] VITALS: BP 102/70; PULSE 70; O2SAT 96; BMI 22.0
--- NOTE | 2024-08-28 11:10 | MHC.PC.OV ---
Vital Signs 08/28/24 11:10 Height 5 ft 1 in Weight 116 lb 8 oz BMI 22.0 BP 102/70 Blood Pressure Location Lt brachial Position Sitting Pulse 70 Pulse Source Pulse Oximeter Pulse Oximetry (%) 96 Oxygen Delivery Method Room Air Intake Visit Reasons: follow up New Product Trainer Required: No Accompanied by: Self / Same As Patient Allergies atorvastatin Adverse Reaction (Intermediate, Verified 08/28/24 11:32) weakness - feels shaky Rosuvastatin Adverse Reaction (Intermediate, Uncoded 08/28/24 11:32) leg weakness Medication List - Last Reconciled 08/28/24 by Jamison Gibson MD ascorbate calcium (vitamin C) 500 mg PO DAILY cholecalciferol (vitamin D3) 50 mcg PO DAILY 90 days ferrous sulfate 325 mg PO DAILY 30 days levothyroxine 112 mcg PO DAILY 90 days pravastatin 10 mg PO BEDTIME 30 days Tobacco use date assessed: 08/28/24 Fall risk assessment: No Falls in past year Last assessed Fall Risk: 08/28/24 Dental Screening Dental Screen Date: 08/28/24 Did you have a dental visit in the last 12 months?: Yes Did you have a dental problem in the last 6 months where you did not have access to dental care?: No Was dental information given to patient?: Patient has dentist HPI follow up HPI Details Patient comes in today for her follow up visit - she was last seen here in December 2023 [facility] Medical History (Updated 08/28/24 @ 11:36 by Jamison Gibson MD) Diabetes mellitus Type 2 diabetes mellitus Vitamin D deficiency Acquired hypothyroidism Pure hypercholesterolemia Depression Iron deficiency anemia secondary to inadequate dietary iron intake Hyperlipidemia Anxiety Surgical History No pertinent past surgical history Family History Father No problems noted. Mother No problems noted. Social History Housing: House Alcohol intake: never Patient Tobacco Use Status: Never used Tobacco e-Cigarette/Vaping Use: Never Used Second Hand Smoke Exposure: No service: No Current occupational status: retired Cognitive needs: No Hearing needs: No Vision needs: Yes Questionnaire PHQ-9 Over the last 2 weeks, how often have you been bothered by any of the following problems? 1. Little interest or pleasure in doing things: not at all 2. Feeling down, depressed, or hopeless: not at all 3. Trouble falling or staying asleep, or sleeping too much: not at all 4. Feeling tired or having little energy: not at all 5. Poor appetite or overeating: not at all 6. Feeling bad about yourself - or that you are a failure or have let yourself or your family down: not at all 7. Trouble concentrating on things, such as reading the newspaper or watching television: not at all 8. Moving or speaking so slowly that other people could have noticed. Or the opposite - being so fidgety or restless that you have been moving around a lot more than usual: not at all 9. Thoughts that you would be better off or of hurting yourself in some way: not at all Total score: 0 Depression Screening Interpretation: Negative Depression Screening Done: Yes 69948 - PHQ-9 Billing: Yes Source: Developed by Drs. Pardeep Tidwell, Deb Pace, Victoriano Santoyo and colleagues, with an educational marleen from [employer]. Thrive Questionnaire Date Thrive assessed: 08/28/24 I am a: Patient What is your living situation today?: I have a steady place to live Within the past 12 months, did the food you bought not last and you didn't have the money to get more?: Never true Within the past 12 months, did you worry whether your food would run out before you got money to buy more?: Never true Do you have trouble paying for medicines?: No Do you have trouble getting transportation to medical appointments?: No Do you have trouble paying your heating and electricity bill?: No Do you have trouble taking care of your child, family member or friend?: No Do you have trouble with day-to-day activities such as bathing, preparing meals, shopping, managing finances, etc.?: No Are you currently unemployed and looking for a job?: No Are you interested in more education?: No Please select the resources that you would like help with: None Currently or been in a relationship where the following occur: No concerns reported THRIVE Score: 0 AUDIT C Alcohol Use Questionnaire (AUDIT-C) 1. How often do you have a drink containing alcohol?: Never 3. How often do you have six or more drinks on one occasion?: Never Total Score: 0 Score Reviewed/Action Taken: Yes VANESA-7 AMB Questionnaire VANEAS-7 Date VANESA - 7 assessed: 08/28/24 Feeling nervous, anxious, or on edge: 0 = Not at all Not being able to stop or control worryin = Not at all Worrying too much about different things: 0 = Not at all Trouble relaxin = Not at all Being so restless that it is hard to sit still: 0 = Not at all Becoming easily annoyed or irritable: 0 = Not at all Feeling afraid as if something awful might happen: 0 = Not at all Total VANESA-7 score (0-4 normal; 5-9 mild; 10-14 moderate; 15-21 severe): 0 Source: Developed by Drs. Pardeep Tidwell, Deb Pace, Victoriano Santoyo and colleagues, with an educational marleen from [employer]. Physical exam (Primary Care) Vital Signs: Last Vital Signs Pulse 70 08/28/24 11:10 BP 102/70 08/28/24 11:10 Pulse Ox 96 08/28/24 11:10 Oxygen Delivery Method Room Air 08/28/24 11:10 BMI result Body Mass Index 22.0 Tobacco/Smoking Status: Tobacco use Status Tobacco use date assessed 08/28/24 08/28/24 11:19 Patient Tobacco Use Status Never used Tobacco 08/28/24 11:19 e-Cigarette/Vaping Use Never Used 08/28/24 11:19 PHQ-9: PHQ-9 Score PHQ-9: Total score 0 08/28/24 11:19 Depression Screening Interpretation: Negative Thrive Assessment: Date of Thrive Assessment Date Thrive assessed 08/28/24 08/28/24 11:19 Currently or been in a relationship where the following occur: No concerns reported Results AMB Hemoglobin A1c AMB Hemoglobin A1c 7.4 % Last Edit by GREGORIO Chamberlain on 08/28/24 11:39 Coding Diagnoses Type 2 diabetes mellitus without complication, without long-term current use of insulin E11.9 Diabetes mellitus type: type 2 Diabetes mellitus long wall mining machine tender insulin use: without alf use Diabetes mellitus complication status: without complication Pure hypercholesterolemia E78.00 Acquired hypothyroidism E03.9 Iron deficiency anemia secondary to inadequate dietary iron intake D50.8 Vitamin D deficiency E55.9 Anxiety F41.9 Episode of recurrent major depressive disorder, unspecified depression episode severity F33.9 Depression Type: major depressive disorder Major depression recurrence: recurrent Active/Remission status: currently active Major depression episode severity: unspecified Additional Codes PHQ-9 - 40094 - PHQ-9 Billing: Yes ([id number]) Assessment & Plan Assessment & Plan (1) Diabetes mellitus: Code(s): E11.9 - Type 2 diabetes mellitus without complications Category: Medical Qualifiers: Diabetes mellitus type: type 2 Diabetes mellitus alf insulin use: without long wall mining machine tender use Diabetes mellitus complication status: without complication Qualified Code(s): E11.9 - Type 2 diabetes mellitus without complications Plan: Newly-diagnosed in July 2024 - in-office HgbA1c done at the walk-in clinic at the time was at 7.7% Her in-office HgbA1c done today (08/28/2024) is at 7.4% - goal is at least <7.0% Reinforced diabetic diet (2) Pure hypercholesterolemia: Code(s): E78.00 - Pure hypercholesterolemia, unspecified Category: Medical (3) Acquired hypothyroidism: Code(s): E03.9 - Hypothyroidism, unspecified Category: Medical (4) Iron deficiency anemia secondary to inadequate dietary iron intake: Code(s): D50.8 - Other iron deficiency anemias Category: Medical (5) Vitamin D deficiency: Code(s): E55.9 - Vitamin D deficiency, unspecified Category: Medical (6) Anxiety: Code(s): F41.9 - Anxiety disorder, unspecified Category: Medical (7) Depression: Code(s): F32.9 - Major depressive disorder, single episode, unspecified Category: Medical Qualifiers: Depression Type: major depressive disorder Major depression recurrence: recurrent Active/Remission status: currently active Major depression episode severity: unspecified Qualified Code(s): F33.9 - Major depressive disorder, recurrent, unspecified Orders: Orders AMB Hemoglobin A1c Today Z13.9 - Encounter for screening, unspecified
== END 2024-08-28 11:49 | disposition home or self-care (01) ==
PROVIDERS: PCP Internal Medicine; Visit Provider Internal Medicine
DX: Z13.9 Encounter for screening, unspecified (principal)

== ENCOUNTER → 2024-08-28 11:01 | Outpatient (BNVA) | payer MEDICARE, OTHER, SELFPAY | PROVIDERS: PCP Internal Medicine; Visit Provider Internal Medicine | DX: E11.9 Type 2 diabetes mellitus without complications (principal); E78.00 Pure hypercholesterolemia, unspecified; E03.9 Hypothyroidism, unspecified; D50.8 Other iron deficiency anemias; E55.9 Vitamin D deficiency, unspecified; F41.9 Anxiety disorder, unspecified; F33.9 Major depressive disorder, recurrent, unspecified | CPT/HCPCS: 83036; 96127; 99212 ==

== ENCOUNTER 2024-08-29 08:58 | Outpatient (REF) | payer MEDICARE, OTHER, SELFPAY ==
[2024-08-29 10:37] LABS: Appearance Urine Clear; Color Urine Yellow; Glucose Urine UA Negative (Negative); Leukocyte Esterase Urine Trace (Negative); Nitrite Urine Negative (Negative); PH 6.5 (5.0-9.0); UMIC TRIGGER UACC YES; Urine Blood Trace (Negative); Urine Ketones 15 mg/dL (Negative); Urine Protein Negative (Neg-Trace)
[2024-08-29 10:40] LABS: Bacteria Urine None Seen (None Seen); Hyaline Casts Urine 0-2 /LPF (0-2); Squamous Epithelial Cell Urine 0-2 /HPF (0-2); WBC Urine 0-5 /HPF (0-5)
[2024-08-29 10:41] LABS: MANUAL DIFF FLAG NO
[2024-08-29 10:53] LABS: Basophils Absolute Auto 0.1 X10*3/uL (0.0-0.2); Basophils Percent Auto 1.1 % (0-2); Eosinophils Absolute Auto 0.2 X10*3/uL (0.0-0.4); Eosinophils Percent Auto 3.6 % (0-4); Hematocrit 38.6 % (37.0-47.0); Hemoglobin 11.9 g/dl (12.0-16.0); Imm Gran Abs Auto 0.01 X10*3/uL (0.00-0.03); Imm Gran Pct Auto 0.2 % (0.0-0.4); Lymphocytes Absolute Auto 1.9 X10*3/uL (1.2-4.9); Lymphocytes Percent Auto 33.4 % (20-40); Mean Corpuscular HGB Conc 30.8 g/dl (31.0-35.0); Mean Corpuscular Hemoglobin 21.9 pg (27.0-33.0); Mean Platelet Volume 11.7 fL (9.4-12.3); Monocytes Absolute Auto 0.5 X10*3/uL (0.1-1.2); Monocytes Percent Auto 8.3 % (2-11); Neutrophils Percent Auto 53.4 % (45-73); Platelet Count 221 X10*3/uL (160-400); Red Blood Count 5.44 X10*6/uL (4.20-5.50); Red Cell Distribution Width 14.6 % (11.0-16.0); White Blood Count 5.6 X10*3/uL (4.8-10.8)
[2024-08-29 11:20] LABS: Creatinine Urine 210.91 mg/dL; Microalbum/Creatinine Ratio Ur 7.1 ug/mg cr (<30)
[2024-08-29 11:38] LABS: Alanine Aminotransferase 27 U/L (0-31); Albumin Level 4.3 g/dL (3.5-5.0); Alkaline Phosphatase 69 U/L (39-117); Anion Gap 11 (12-20); Aspartate Amino Transferase 31 U/L (5-31); Bilirubin Total 0.5 mg/dL (0.0-1.0); Blood Urea Nitrogen 18 mg/dL (9-16); Calcium 9.2 mg/dL (8.4-10.2); Carbon Dioxide 26 mmol/L (22-29); Chloride 107 mmol/L (96-108); Cholesterol 210 mg/dL (<200); Estimated Glomerular Filt Rate > 60; Glucose Fasting 122 mg/dL (60-99); HDL Cholesterol 59 mg/dL (>40); Iron 108 mcg/dL (30-160); LDL Cholesterol Calculated 135 mg/dL (<100); Percent Iron Saturation 45 % (15-50); Potassium 3.7 mmol/L (3.3-5.1); Sodium 140 mmol/L (135-145); Total Iron Binding Capacity 239 mcg/dL (228-428); Total Protein 7.7 g/dL (6.5-8.0); Triglycerides 84 mg/dL (<150); Unsaturated Iron Binding 131 ug/dL
[2024-08-29 11:47] LABS: Free T4 (Free Thyroxine) 0.96 ng/dL (0.71-1.85); Thyroid Stimulating Hormone 1.44 uIU/mL (0.32-4.0); Vitamin D 25-OH Total 47.4 ng/mL (>30)
== END 2024-08-29 08:59 | disposition home or self-care (01) ==
LOC: HO.HMGCLDS 08:58
PROVIDERS: PCP Internal Medicine; Visit Provider Internal Medicine
DX: E78.00 Pure hypercholesterolemia, unspecified (principal); E03.9 Hypothyroidism, unspecified; D50.9 Iron deficiency anemia, unspecified; E55.9 Vitamin D deficiency, unspecified; E11.9 Type 2 diabetes mellitus without complications; D64.9 Anemia, unspecified
CPT/HCPCS: 36415; 80053; 80061; 81001; 82043; 82306; 82570; 83540; 84439; 84443; 85025

== ENCOUNTER 2025-01-24 14:58 | Outpatient (AMB) | payer MEDICARE, OTHER, SELFPAY ==
--- NOTE | 2025-01-24 15:03 | MHC.PC.OV ---
Vital Signs 01/24/25 15:04 Height 5 ft 1 in Weight 111 lb BMI 21.0 BP 102/60 Blood Pressure Location Lt brachial Position Sitting Pulse 63 Pulse Source Pulse Oximeter Pulse Oximetry (%) 96 Oxygen Delivery Method Room Air Intake Visit Reasons: DM,anemia,hyperlipidemia Market Development Analyst Required: No Accompanied by: Self / Same As Patient Allergies atorvastatin Adverse Reaction (Intermediate, Verified 01/24/25 15:30) weakness - feels shaky Rosuvastatin Adverse Reaction (Intermediate, Uncoded 01/24/25 15:30) leg weakness Medication List - Last Reconciled 01/24/25 by Jamison Gibson MD ascorbate calcium (vitamin C) 500 mg PO DAILY cholecalciferol (vitamin D3) 50 mcg PO DAILY 90 days ferrous sulfate 325 mg PO DAILY 30 days levothyroxine 112 mcg PO DAILY 90 days pravastatin 10 mg PO BEDTIME 30 days Tobacco use date assessed: 01/24/25 Fall risk assessment: No Falls in past year Last assessed Fall Risk: 01/24/25 Dental Screening Dental Screen Date: 01/24/25 Did you have a dental visit in the last 12 months?: Yes Did you have a dental problem in the last 6 months where you did not have access to dental care?: No Was dental information given to patient?: Patient has dentist HPI DM,anemia,hyperlipidemia HPI Details Patient comes in today for her follow-up visit States that she presently feels okay but she reportedly passed out a parasite / worm once during a bowel movement earlier this week and is wondering if she needs to have any additional workup done regarding this She denies any abdominal pain, nausea or vomiting and states that she has had no problems with her bowel movements lately She denies any headaches or dizziness Denies any chest pains, no shortness of breath She has no follow-up labs done recently although she states that she had labs done a couple of days after her last visit earlier this year [facility] Medical History Diabetes mellitus Type 2 diabetes mellitus Vitamin D deficiency Acquired hypothyroidism Pure hypercholesterolemia Depression Iron deficiency anemia secondary to inadequate dietary iron intake Hyperlipidemia Anxiety Surgical History No pertinent past surgical history Family History Father No problems noted. Mother No problems noted. Social History Housing: House Alcohol intake: never Patient Tobacco Use Status: Never used Tobacco e-Cigarette/Vaping Use: Never Used Second Hand Smoke Exposure: No service: No Current occupational status: retired Current occupational exposures/hazards: No Cognitive needs: No Hearing needs: No Vision needs: Yes Questionnaire PHQ-9 Over the last 2 weeks, how often have you been bothered by any of the following problems? 1. Little interest or pleasure in doing things: not at all 2. Feeling down, depressed, or hopeless: not at all 3. Trouble falling or staying asleep, or sleeping too much: not at all 4. Feeling tired or having little energy: not at all 5. Poor appetite or overeating: not at all 6. Feeling bad about yourself - or that you are a failure or have let yourself or your family down: not at all 7. Trouble concentrating on things, such as reading the newspaper or watching television: not at all 8. Moving or speaking so slowly that other people could have noticed. Or the opposite - being so fidgety or restless that you have been moving around a lot more than usual: not at all 9. Thoughts that you would be better off or of hurting yourself in some way: not at all Total score: 0 Depression Screening Interpretation: Negative Depression Screening Done: Yes 89774 - PHQ-9 Billing: Yes Source: Developed by Drs. Pardeep Tidwell, Deb Pace, Victoriano Santoyo and colleagues, with an educational marleen from [employer] Thrive Questionnaire Date Thrive assessed: 01/24/25 I am a: Patient What is your living situation today?: I have a steady place to live Within the past 12 months, did the food you bought not last and you didn't have the money to get more?: I choose not to answer this question Within the past 12 months, did you worry whether your food would run out before you got money to buy more?: I choose not to answer this question Do you have trouble paying for medicines?: No Do you have trouble getting transportation to medical appointments?: No Do you have trouble paying your heating and electricity bill?: No Do you have trouble taking care of your child, family member or friend?: No Do you have trouble with day-to-day activities such as bathing, preparing meals, shopping, managing finances, etc.?: No Are you currently unemployed and looking for a job?: No Are you interested in more education?: No Please select the resources that you would like help with: None Currently or been in a relationship where the following occur: No concerns reported THRIVE Score: 0 AUDIT C Alcohol Use Questionnaire (AUDIT-C) 1. How often do you have a drink containing alcohol?: Never 3. How often do you have six or more drinks on one occasion?: Never Total Score: 0 Score Reviewed/Action Taken: Yes VANESA-7 AMB Questionnaire VANESA-7 Date VANESA - 7 assessed: 01/24/25 Feeling nervous, anxious, or on edge: 0 = Not at all Not being able to stop or control worryin = Not at all Worrying too much about different things: 0 = Not at all Trouble relaxin = Not at all Being so restless that it is hard to sit still: 0 = Not at all Becoming easily annoyed or irritable: 0 = Not at all Feeling afraid as if something awful might happen: 0 = Not at all Total VANESA-7 score (0-4 normal; 5-9 mild; 10-14 moderate; 15-21 severe): 0 Source: Developed by Drs. Pardeep Tidwell, Deb Pace, Victoriano Santoyo and colleagues, with an educational marleen from [employer] Review of Systems Const Denies chills, Denies fatigue, Denies fever(s) and Denies headache(s) ENT Denies dysphagia, Denies dizziness, Denies otalgia, Denies headache(s), Denies neck pain, Denies odynophagia and Denies sore throat Card Denies chest pain, Denies palpitations and Denies dyspnea Resp Denies chest congestion, Denies cough and Denies dyspnea GI Reports as per HPI, Denies abdominal pain, Denies constipation, Denies dysphagia, Denies heartburn, Denies diarrhea, Denies nausea, Denies odynophagia and Denies vomiting Denies difficulty voiding, Denies nocturia, Denies dysuria and Denies urinary urgency Musc Denies back pain, Reports arthralgias (left shoulder,on and off; recurrent cramping pain in fingers on both hands ) and Denies neck pain Skin/Breast Denies rash Neuro Denies dizziness and Denies headache(s) Psych Denies anxiety Endo Denies fatigue and Denies palpitations Physical exam (Primary Care) Vital Signs: Last Vital Signs Pulse 63 01/24/25 15:04 BP 102/60 01/24/25 15:04 Pulse Ox 96 01/24/25 15:04 Oxygen Delivery Method Room Air 01/24/25 15:04 BMI result Body Mass Index 21.0 Tobacco/Smoking Status: Tobacco use Status Tobacco use date assessed 01/24/25 01/24/25 15:10 Patient Tobacco Use Status Never used Tobacco 01/24/25 15:10 e-Cigarette/Vaping Use Never Used 01/24/25 15:10 PHQ-9: PHQ-9 Score PHQ-9: Total score 0 01/24/25 15:33 Depression Screening Interpretation: Negative Thrive Assessment: Date of Thrive Assessment Date Thrive assessed 01/24/25 01/24/25 15:10 Currently or been in a relationship where the following occur: No concerns reported Const General: no acute distress and alert HENMT Ears: TM's normal bilaterally and EAC's normal Throat: Yes posterior oropharynx normal and Yes tonsils normal (no TP congestion) Neck Neck: Yes supple and No lymphadenopathy Thyroid: Thyroid normal Resp Auscultation: clear to auscultation bilaterally, no rales and no wheezes Cardio Rate: regular rate Rhythm: regular rhythm Heart sounds: no murmurs GI Palpation (GI): Soft to palpation and nontender Auscultation: normal bowel sounds Skin Rashes: no rashes Extrem General: Yes no clubbing, cyanosis or edema Results Reviewed Results Reviewed: Laboratory Tests 08/09/24 08/28/24 08/29/24 16:18 11:38 09:02 WBC 5.6 Hgb 11.9 L Hct 38.6 Plt Count 221 Sodium 140 Potassium 3.7 Creatinine 0.79 Estimated GFR > 60 Fasting Glucose 122 H Hgb A1c (Clinic) 7.4 H Calcium 9.2 AST 31 ALT 27 Triglycerides 84 Cholesterol 210 H LDL Cholesterol, Calc 135 H HDL Cholesterol 59 25-OH Vitamin D Total 47.4 TSH 1.44 Free T4 0.96 Ur Specific [place] Urine Protein Urine Glucose (UA) Urine Blood Urine Nitrite Leukocyte Esterase (Auto) 0 Microalb/Creat Ratio 08/29/24 09:10 WBC Hgb Hct Plt Count Sodium Potassium Creatinine Estimated GFR Fasting Glucose Hgb A1c (Clinic) Calcium AST ALT Triglycerides Cholesterol LDL Cholesterol, Calc HDL Cholesterol 25-OH Vitamin D Total TSH Free T4 Ur Specific [place] 1.020 Urine Protein Negative Urine Glucose (UA) Negative Urine Blood Trace H Urine Nitrite Negative Leukocyte Esterase (Auto) Microalb/Creat Ratio 7.1 Coding Level of Care Code Est Pt Level 4 (16480) Diagnoses Type 2 diabetes mellitus without complication, without long-term current use of insulin E11.9 Diabetes mellitus complication status: without complication Diabetes mellitus detention insulin use: without detention use Diabetes mellitus type: type 2 Pure hypercholesterolemia E78.00 Acquired hypothyroidism E03.9 Iron deficiency anemia secondary to inadequate dietary iron intake D50.8 Vitamin D deficiency E55.9 Intestinal parasitism, 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 Anxiety F41.9 Episode of recurrent major depressive disorder, unspecified depression episode severity F33.9 Active/Remission status: currently active Depression Type: major depressive disorder Major depression episode severity: unspecified Major depression recurrence: recurrent Additional Codes PHQ-9 - 15242 - PHQ-9 Billing: Yes ([id number]) Assessment & Plan Assessment & Plan (1) Diabetes mellitus: Comment: newly-diagnosed in July 2024 Code(s): E11.9 - Type 2 diabetes mellitus without complications Category: Medical Qualifiers: Diabetes mellitus complication status: without complication Diabetes mellitus exterminator insulin use: without exterminator use Diabetes mellitus type: type 2 Qualified Code(s): E11.9 - Type 2 diabetes mellitus without complications Plan: In-office HgbA1c done today is at 6.9% (was at 7.7% at the walk-in clinic earlier this year and 7.4% at her last visit in August 2024) - goal is at least <7.0% Reinforced diabetic diet Have recommended that patient start taking medications for her diabetes at her last visit but she asked to hold off and try diet modification first; she would like to continue with diet modification at this time as her diabetes control has shown improvement over the past few months Will have her recheck her labs and HgbA1c in 4 months for follow-up (2) Pure hypercholesterolemia: Code(s): E78.00 - Pure hypercholesterolemia, unspecified Category: Medical Plan: Results of her labs done back in August 2024 reviewed and discussed with patient - her cholesterol levels have improved slightly on her labs but they are still elevated Reinforced low-cholesterol diet Continue Pravastatin 10 mg QD for now (she could not tolerate atorvastatin or rosuvastatin in the past) Will recheck her labs and fasting lipids in 4 months for follow-up (3) Acquired hypothyroidism: Code(s): E03.9 - Hypothyroidism, unspecified Category: Medical Plan: Continue Levothyroxine at 112 mcg QD Will recheck her TFTs in 4 months for follow up (4) Iron deficiency anemia secondary to inadequate dietary iron intake: Code(s): D50.8 - Other iron deficiency anemias Category: Medical Plan: Continue Ferrous sulfate 325 mg QD We will recheck her CBC in 4 months (5) Vitamin D deficiency: Code(s): E55.9 - Vitamin D deficiency, unspecified Category: Medical Plan: Continue vitamin D3 2000 units QD (6) Intestinal parasitism, unspecified: Code(s): B82.9 - Intestinal parasitism, unspecified Category: Medical Plan: Have advised patient to just observe this for now and if she happens to pass out any more parasites over the next few months, then we will consider starting her on Tx for intestinal parasites (7) Anxiety: Code(s): F41.9 - Anxiety disorder, unspecified Category: Medical Plan: She was on Escitalopram 20 mg QD in the past but she self-discontinued the medication sometime last year as she was feeling okay at the time and did not think that she needed to continue on her Rx She was also seeing psychiatry previously but has not been back to see them in a while now (8) Depression: Code(s): F32.9 - Major depressive disorder, single episode, unspecified Category: Medical Qualifiers: Active/Remission status: currently active Depression Type: major depressive disorder Major depression episode severity: unspecified Major depression recurrence: recurrent Qualified Code(s): F33.9 - Major depressive disorder, recurrent, unspecified Plan: As above - patient was on Escitalopram 20 mg QD in the past but she self-discontinued the medication last year as she did not feel that she needed to continue on her Rx She was seeing psychiatry previously but has not been back to see them in a while now Plan Follow-up in 4 months Orders: Orders AMB Hemoglobin A1c 01/24/25 Z13.9 - Encounter for screening, unspecified
[2025-01-24 15:04] VITALS: BP 102/60; PULSE 63; O2SAT 96; BMI 21.0
== END 2025-01-24 15:38 | disposition home or self-care (01) ==
LOC: HO.HMCH 14:59
PROVIDERS: PCP Internal Medicine; Visit Provider Internal Medicine
DX: E11.9 Type 2 diabetes mellitus without complications (principal); E78.00 Pure hypercholesterolemia, unspecified; E03.9 Hypothyroidism, unspecified; D50.8 Other iron deficiency anemias; E55.9 Vitamin D deficiency, unspecified; B82.9 Intestinal parasitism, unspecified; F41.9 Anxiety disorder, unspecified; F33.9 Major depressive disorder, recurrent, unspecified

== ENCOUNTER → 2025-01-24 14:58 | Outpatient (BNVA) | payer MEDICARE, OTHER, SELFPAY | PROVIDERS: PCP Internal Medicine; Visit Provider Internal Medicine | DX: E11.9 Type 2 diabetes mellitus without complications (principal); E78.00 Pure hypercholesterolemia, unspecified; E03.9 Hypothyroidism, unspecified; D50.8 Other iron deficiency anemias; E55.9 Vitamin D deficiency, unspecified; B82.9 Intestinal parasitism, unspecified; F41.9 Anxiety disorder, unspecified; F33.9 Major depressive disorder, recurrent, unspecified | CPT/HCPCS: 96127; 99212 ==